=== PATIENT | female | born 1940 | race Caucasian/White ===

== ENCOUNTER → 2017-04-11 | Outpatient (CLI) | payer MEDICARE, OTHER ==
--- NOTE | 2017-04-11 10:05 | MR ---
EXAMINATION TYPE: MR shoulder RT wo con DATE OF EXAM: 04/11/2017 COMPARISON: NONE HISTORY: Right shoulder pain TECHNIQUE: Multiplanar, multisequence imaging of the right shoulder is performed without contrast. FINDINGS: Rotator Cuff: There is a partial through thickness tear involving the distal margin and insertion of the supraspinatus tendon measuring approximately 0.7 x 1.3 cm Infraspinatus tendon appears intact. There does appear to be intrasubstance signal suggestive of part ial tear measuring approximately 0.8 cm. No retraction. There is irregularity and increased signal at the insertion of the subscapularis tendon compatible te ndinosis and partial intrasubstance tear. Acromioclavicular Joint: Hypertrophic change and narrowing of the AC joint noted. This does appear to result in mass effect and impingement supraspinatus muscle and tendon. Glenohumeral Joint: Joint spaces preserved. Inferior glenohumeral ligament intact. Labrum: The labrum appears grossly intact given limitation of non-arthrogram study. Biceps Tendon: The long head of biceps is in normal location within bicipital groove. There is a smal l amount of fluid surrounding the biceps tendon. Bone marrow signal: No focal abnormal marrow signal is appreciated. IMPRESSION: 1. Partial through thickness tear involving the anterior fibers distal margin and insertion insertion of the supraspinatus tendon measuring 0.7 x 1.3 cm. No retraction. 2. Diffuse increased signal and tendinopathy distal margin insertion infraspinatus tendon with partia l tear but no retraction. 3. Tendinopathy partial intrasubstance tear insertion subscapularis tendon. 4. Impingement secondary to hypertrophic change of the AC joint. 5. Mild bicipital tendinosis.
== END | disposition home or self-care (01) ==
LOC: RADMRIMAIN 08:37
PROVIDERS: ATTEND Family Medicine
DX: M75.112 Incomplete rotator cuff tear or rupture of left shoulder, not specified as traumatic (principal); M25.811 Other specified joint disorders, right shoulder; M75.81 Other shoulder lesions, right shoulder; J44.9 Chronic obstructive pulmonary disease, unspecified

== ENCOUNTER → 2017-04-11 | Outpatient (CLI) | payer MEDICARE, OTHER ==
[2017-04-11 10:55] LABS: ALT 43 U/L (9-52); AST 44 U/L (14-36); Alkaline Phosphatase 134 U/L (38-126); Anion Gap 9 mmol/L; Blood Urea Nitrogen 10 mg/dL (7-17); Calcium 9.5 mg/dL (8.4-10.2); Carbon Dioxide 28 mmol/L (22-30); Chloride 99 mmol/L (98-107); Cholesterol 177 mg/dL (<200); Glucose 112 mg/dL (74-99); HDL Cholesterol 94 mg/dL (40-60); Non-African American GFR(MDRD) >60 (>60 ml/min/1.73 sqM); Potassium 4.3 mmol/L (3.5-5.1); Sodium 136 mmol/L (137-145); Total Bilirubin 0.3 mg/dL (0.2-1.3); Total Protein 6.9 g/dL (6.3-8.2)
== END | disposition home or self-care (01) ==
LOC: LABWHC1 09:54
PROVIDERS: ATTEND Internal Medicine Interventional Cardiology
DX: E78.2 Mixed hyperlipidemia (principal)
CPT/HCPCS: 36415; 80053; 80061

== ENCOUNTER 2017-11-18 13:43 | Inpatient (IN) | payer MEDICARE, OTHER ==
[2017-11-18] MEDS ORDERED: ALBUTEROL NEBULIZED 7.5 MG, IPRATROPIUM NEBULIZED 0.5 MG, SODIUM CHLORIDE 0.9% NEBULIZ ... INHALATION ONE ×3 (13:49)
--- NOTE | 2017-11-18 13:51 | ED ---
General Adult HPI - General Stated complaint: SOB Time Seen by Provider: 11/18/17 13:43 - History of Present Illness Initial comments: This is a 77-year-old female presents emergency room with a past medical history significant for COPD. Patient was recently admitted to [facility] for COPD and released. Patient comes back a few days later with worsening shortness of breath. Because he has to wanted to admit her but they did not have a weapons system instrument mechanic and the ER physician thought she was in need of a weapons system instrument mechanic care and her weapons system instrument mechanic comes this hospital. Patient continues to wheeze according to EMS. Patient states she's feeling better now but she continues to be short of breath more than her baseline. Patient denies any chest pain. Patient denies any recent fever chills or cough. Patient denies headache patient denies numbness weakness. Patient denies syncope or any near syncope. Patient denies any abdominal pain patient denies nausea vomiting diarrhea. Patient states the breathing treatment she did receive a [facility] did in fact help her. - Related Data Home Medications Medication Instructions Recorded Confirmed Budesonide-Formot 160-4.5 Mcg 2 puff INHALATION RT-BID 09/24/16 11/06/16 [Symbicort 160-4.5 Mcg Inhaler] Citalopram Hydrobromide [CeleXA] 20 mg PO DAILY 09/24/16 11/06/16 Gabapentin [Neurontin] 100 mg PO TID 09/24/16 11/06/16 Losartan/Hydrochlorothiazide 1 tab PO DAILY 09/24/16 11/06/16 [Hyzaar 100-25 Tablet] Omeprazole 20 mg PO DAILY 09/24/16 11/06/16 Albuterol Sulfate [Proair Hfa] 1 - 2 puff INHALATION RT-TID PRN 11/06/16 Ondansetron [Zofran] 4 mg PO Q12HR PRN 11/06/16 11/06/16 Previous Rx's Medication Instructions Recorded Atorvastatin [Lipitor] 80 mg PO HS #30 tab 09/29/16 Clopidogrel [Plavix] 75 mg PO DAILY tab 09/29/16 Primidone [Mysoline] 50 mg PO TID #90 tab 09/29/16 Loperamide [Imodium] 2 mg PO TID #90 capsule 11/10/16 Cholestyramine (with Sugar) 4 gm PO BID #60 packet 11/13/16 [Questran Packet] Loperamide [Imodium] 2 mg PO TID #30 cap 11/13/16 Metoprolol Tartrate [Lopressor] 25 mg PO BID #60 tab 11/13/16 Allergies Allergy/AdvReac Type Severity Reaction Status Date / Time aspirin AdvReac Abdominal Verified 11/06/16 08:34 Pain codeine AdvReac Nausea & Verified 11/06/16 08:34 Vomiting Review of Systems ROS Statement: Those systems with pertinent positive or pertinent negative responses have been documented in the HPI. ROS Other: All systems not noted in ROS Statement are negative. Past Medical History Past Medical History: COPD, CVA/TIA, Dementia, Fibromyalgia, Hyperlipidemia, Hypertension, Rheumatoid Arthritis ([place]) Additional Past Medical History / Comment(s): chronic back pain History of Any Multi-Drug Resistant Organisms: None Reported Past Surgical History: Appendectomy, Bowel Resection, Cholecystectomy, Hysterectomy Past Psychological History: No Psychological Hx Reported Smoking Status: Never smoker Past Alcohol Use History: None Reported Past Drug Use History: None Reported - Past Family History Mother Family Medical History: CVA/TIA, Myocardial Infarction ([place]) Father Family Medical History: Cancer General Exam - General Exam Comments Initial Comments: GENERAL: Patient is well-developed and well-nourished. Patient is nontoxic and well- hydrated and is in mild distress. ENT: Neck is soft and supple. No significant lymphadenopathy is noted. Oropharynx is clear. Moist mucous membranes. Neck has full range of motion without eliciting any pain. EYES: The sclera were anicteric and conjunctiva were pink and moist. Extraocular movements were intact and pupils were equal round and reactive to light. Eyelids were unremarkable. PULMONARY: Patient is wheezing diffusely CARDIOVASCULAR: There is a regular rate and rhythm without any murmurs gallops or rubs. ABDOMEN: Soft and nontender with normal bowel sounds. No palpable organomegaly was noted. There is no palpable pulsatile mass. SKIN: Skin is clear with no lesions or rashes and otherwise unremarkable. NEUROLOGIC: Patient is alert and oriented x3. Cranial nerves II through XII are grossly intact. Motor and sensory are also intact. Normal speech, volume and content. Symmetrical smile. MUSCULOSKELETAL: Normal extremities with adequate strength and full range of motion. No lower extremity swelling or edema. No calf tenderness. LYMPHATICS: No significant lymphadenopathy is noted PSYCHIATRIC: Normal psychiatric evaluation. Medical Decision Making - Medical Decision Making EKG shows sinus rhythm with occasional PVC at 97 bpm TN interval is 128 QRS 72 QT interval 374 QTC is 474. Patient's EKG shows no ST segment elevation or depression or T wave abnormalities are noted. Patient chest x-ray was put on or radiology system. And reviewed. I spoke with Dr. Blanc admitted the patient I consult the ulnar nares and wrote admitting orders. Disposition Clinical Impression: COPD exacerbation Disposition: ADMITTED IP TO THIS HOSP Referrals: Nacho Bermudez MD [Primary Care Provider] - 1-2 days Time of Disposition: 13:56
[2017-11-18] MEDS ORDERED: IPRATROPIUM-ALBUTEROL 3 ML NEB INHALATION PRN (13:56)
[2017-11-18 15:09] VITALS: BMI 23.0
[2017-11-18] MEDS ORDERED: DIPHENOX-ATROP 2.5-0.025 MG 1 EACH TAB PO PRN (16:18)
[2017-11-18 17:08] LABS: Glucose,Whole Blood 211 mg/dL (75-99)
[2017-11-18] MEDS: INSULIN ASPART 100 UNIT/ML 1 ML 10 ML VIAL SQ SCH ×2 (17:40→22:00)
[2017-11-18] MEDS: methylPREDNISolone SOD SUCCI 125 MG/2 ML VIAL IV SCH ×2 (17:41→23:38)
[2017-11-18] MEDS: GABAPENTIN 100 MG CAP PO SCH ×2 (17:41→22:03)
[2017-11-18] MEDS: CLOPIDOGREL 75 MG TAB PO SCH (17:41)
[2017-11-18] MEDS: CITALOPRAM HYDROBROMIDE 20 MG TAB PO SCH (17:41)
[2017-11-18] MEDS: PRIMIDONE 50 MG TAB PO SCH ×2 (17:41→22:03)
[2017-11-18] MEDS: METOPROLOL SUCCINATE (ER) 25 MG TAB.ER.24H PO SCH (17:42)
[2017-11-18] MEDS: SYMBICORT 160-4.5 MCG INHALER INHALATION SCH (18:48)
[2017-11-18 19:57] LABS: Glucose,Whole Blood 169 mg/dL (75-99)
[2017-11-18] MEDS: ATORVASTATIN 80 MG TAB PO SCH (21:59)
[2017-11-18] MEDS: IPRATROPIUM-ALBUTEROL 3 ML NEB INHALATION SCH ×2 (23:32→23:35)
[2017-11-18] MEDS: BUDESONIDE 1 MG/2 ML NEBU INHALATION SCH (23:32)
--- NOTE | 2017-11-19 04:07 | HP ---
HISTORY AND PHYSICAL DATE OF ADMISSION: November 18, 2017. DATE OF SERVICE: November 18, 2017 PRESENTING COMPLAINT: Short of breath, wheezing and cough. HISTORY OF PRESENTING COMPLAINT: Pleasant 77-year-old patient was here with her . Chronic stable medical conditions include Alzheimer's dementia, hyperlipidemia, hypertension, osteoarthritis, depression, GERD, urinary stress incontinence. The patient presented to [facility] and was there overnight for COPD exacerbation, given breathing treatments and was sent home. The patient progressed to get more and more wheezing, audible cough, bringing up a little sputum. No fever, chills, decreased tired and run down. Quite a bit of coughing and patient was brought in here. The patient's by the bedside. REVIEW OF SYSTEMS: CONSTITUTIONAL: Tired. HEENT none. RESPIRATORY as above. CARDIOVASCULAR none. GASTROINTESTINAL none. GENITOURINARY incontinence. DERMATOLOGICAL none. HEMATOLOGIC none. LYMPHATICS none. PSYCHIATRY: Anxious. NEUROLOGICAL: None. MUSCULOSKELETAL: Pain in different joints. PAST MEDICAL HISTORY: COPD, dementia, hypertension, hyperlipidemia, osteoarthritis, depression, rheumatoid arthritis, restless legs syndrome. GERD, urinary incontinence, stroke, generalized myoclonic jerks. HOME MEDICATIONS: 1. Requip 0.5 mg q.h.s. 2. Prednisone 40 mg a day. 3. Mysoline 50 mg t.i.d. 4. Zofran 4 mg q.8h p.r.n. 5. Omeprazole 40 mg a day. 6. Toprol-XL 25 mg a day. 7. Magnesium oxide 800 mg q.h.s. p.r.n. 8. Cozaar 25 mg a day. 9. Levaquin 500 mg a day. 10.Neurontin 100 mg p.o. t.i.d. 11.Lomotil 1 tablet p.o. q.12 p.r.n. 12.Cymbalta 30 mg p.o. daily. 13.Plavix 75 mg p.o. daily. 14.Celexa 20 mg p.o. daily. 15.Symbicort 160/4.5, 2 puffs b.i.d. 16.Lipitor 80 mg q.h.s. 17.ProAir HFA 2 puffs q.4 p.r.n. 18.Ventolin 2.5 q.4h p.r.n. ALLERGIES: TO ASPIRIN AND CODEINE. PHYSICAL EXAMINATION: VITAL SIGNS: Temperature 98.7, pulse 96, respiratory 22, blood pressure 193/84, pulse ox 100% on room air, repeat blood pressure 124/65. GENERAL APPEARANCE: Average build, sitting up, short of breath. EYES: Pupils equal. Conjunctivae normal. HEENT: External appearance of nose and ears normal. Oral cavity, pharynx irritated. NECK: JVD not raised. Mass not palpable. RESPIRATORY: Effort increased. LUNGS: Diminished breath sounds. Expiratory wheezing, audible also. CARDIOVASCULAR: 1st and 2nd sounds normal. No edema. ABDOMEN: Soft, nontender. Liver and spleen not palpable. LYMPHATICS: No lymph nodes palpable in the neck and axilla. PSYCHIATRY: Alert and oriented x3. Mood and affect anxious-appearing. NEUROLOGICAL: Pupils equal. Cranial nerves grossly intact. Power and sensation grossly intact. MUSCULOSKELETAL: Evidence of osteoarthritis. PAST SURGICAL HISTORY: Appendectomy, bowel resection, cholecystectomy, hysterectomy. SOCIAL HISTORY: The patient smoked a pack a day for 50 years, now discontinued. Alcohol socially. . FAMILY HISTORY: Reviewed, noncontributory to presentation. ASSESSMENT: 1. Acute severe chronic obstructive pulmonary disease exacerbation, having failed outpatient treatment in an ex-smoker. 2. 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 3. 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 4. Hyperlipidemia. 5. Essential hypertension. 6. Primary osteoarthritis. 7. Depression not otherwise specified. 8. Gastroesophageal reflux disease. 9. Chronic urinary stress incontinence. 10.Possibly acute tracheobronchitis. PLAN: Patient is started on nebulized bronchodilators, inhaled steroids. We will also humidify the oxygen. The patient told to avoid cold liquids as this is giving laryngospasms. Home medications are resumed. Care was discussed with the at bedside. Pulmonary consultation was done. Copy to Dr. Bermudez. MMODL / IJN: [id number] /
[2017-11-19] MEDS: methylPREDNISolone SOD SUCCI 125 MG/2 ML VIAL IV SCH ×4 (05:42→23:40)
[2017-11-19] MEDS: IPRATROPIUM-ALBUTEROL 3 ML NEB INHALATION SCH ×5 (05:46→20:07)
[2017-11-19 07:05] LABS: Glucose,Whole Blood 129 mg/dL (75-99)
[2017-11-19] MEDS: SYMBICORT 160-4.5 MCG INHALER INHALATION SCH (07:08)
[2017-11-19] MEDS: BUDESONIDE 1 MG/2 ML NEBU INHALATION SCH ×2 (07:16→20:07)
[2017-11-19] MEDS: INSULIN ASPART 100 UNIT/ML 1 ML 10 ML VIAL SQ SCH ×4 (07:51→21:36)
[2017-11-19] MEDS: LOSARTAN 25 MG TAB PO SCH (07:59)
[2017-11-19] MEDS: GABAPENTIN 100 MG CAP PO SCH ×3 (07:59→21:36)
[2017-11-19] MEDS: ENOXAPARIN 40 MG/0.4 ML SYRINGE SQ SCH (07:59)
[2017-11-19] MEDS: PRIMIDONE 50 MG TAB PO SCH ×3 (07:59→21:36)
[2017-11-19 11:14] LABS: Glucose,Whole Blood 124 mg/dL (75-99)
--- NOTE | 2017-11-19 12:12 | P.CNPUL ---
History of Present Illness Consult date: 11/19/17 Reason for consult: dyspnea, cough, COPD, hypoxemia Chief complaint: Shortness of breath History of present illness: Pulmonary consult dated 11/19/2017 77-year-old female with a history of COPD. She actually sees my partner Dr. Mello in the office. She states for last 3 or 4 days, she's had progressive and increasing shortness of breath. In addition, she's got cough. Not producing much or any phlegm. Lots of wheezing and tightness in her chest. She states her chest hurts when she coughs. No fever or chills. No chest pain or chest discomfort. No nausea vomiting or diarrhea. She apparently was transferred down from [facility] for her COPD exacerbation. She tells me that she takes a nebulizer machine 3-4 times a day and Symbicort for her COPD. In addition to COPD, she has a history of hypertension, CVA, dementia, fibromyalgia, hyperlipidemia, and rheumatoid arthritis. Surgical history includes among other things appendectomy bowel resection cholecystectomy hysterectomy. She did used to smoke cigarettes but she does not smoke currently. She feels about 40-50% better today than she did yesterday. Review of Systems Beta point review of system is positive for shortness of breath chest tightness wheezing cough chest congestion and minimal phlegm production. Past Medical History Past Medical History: COPD, CVA/TIA, Dementia, Fibromyalgia, Hyperlipidemia, Hypertension, Myocardial Infarction ([place]), Rheumatoid Arthritis ([place]) Additional Past Medical History / Comment(s): CVA 2017, chronic back pain Last Myocardial Infarction Date:: 2015 History of Any Multi-Drug Resistant Organisms: None Reported Past Surgical History: Appendectomy, Bowel Resection, Cholecystectomy, Hysterectomy Past Psychological History: No Psychological Hx Reported Smoking Status: Former smoker Past Alcohol Use History: None Reported Past Drug Use History: None Reported - Past Family History Mother Family Medical History: CVA/TIA, Myocardial Infarction ([place]) Father Family Medical History: Cancer Medications and Allergies Home Medications Medication Instructions Recorded Confirmed Type Budesonide-Formot 160-4.5 Mcg 2 puff INHALATION RT-BID 09/24/16 11/18/17 History [Symbicort 160-4.5 Mcg Inhaler] Citalopram Hydrobromide [CeleXA] 20 mg PO DAILY 09/24/16 11/18/17 History Gabapentin [Neurontin] 100 mg PO TID 09/24/16 11/18/17 History Atorvastatin [Lipitor] 80 mg PO HS #30 tab 09/29/16 11/18/17 Rx Clopidogrel [Plavix] 75 mg PO DAILY tab 09/29/16 11/18/17 Rx Primidone [Mysoline] 50 mg PO TID #90 tab 09/29/16 11/18/17 Rx Albuterol Sulfate [Proair Hfa] 2 puff INHALATION RT-Q4H PRN 11/06/16 11/18/17 History Ondansetron [Zofran] 4 mg PO Q8H PRN 11/06/16 11/18/17 History Albuterol Nebulized [Ventolin 2.5 mg INHALATION RT-Q4H PRN 11/18/17 11/18/17 History Nebulized] DULoxetine HCL [Cymbalta] 30 mg PO DAILY 11/18/17 11/18/17 History Diphenoxylate HCl/Atropine 1 tab PO Q12H PRN 11/18/17 11/18/17 History [Lomotil 2.5-0.025 mg Tablet] Levofloxacin [Levaquin] 500 mg PO DAILY 11/18/17 11/18/17 History Losartan [Cozaar] 25 mg PO DAILY 11/18/17 11/18/17 History Magnesium Oxide 800 mg PO HS PRN 11/18/17 11/18/17 History Metoprolol Succinate [Toprol XL] 25 mg PO DAILY 11/18/17 11/18/17 History Omeprazole 40 mg PO DAILY 11/18/17 11/18/17 History predniSONE 40 mg PO DAILY 11/18/17 11/18/17 History rOPINIRole HCL [Requip] 0.5 mg PO HS 11/18/17 11/18/17 History Allergies Allergy/AdvReac Type Severity Reaction Status Date / Time aspirin AdvReac Abdominal Verified 11/18/17 13:59 Pain codeine AdvReac Nausea & Verified 11/18/17 13:59 Vomiting Physical Exam Osteopathic Statement: *. No significant issues noted on an osteopathic structural exam other than those noted in the History and Physical/Consult. Vitals: Vital Signs Temp Pulse Pulse Resp BP BP Pulse Ox 11/19/17 11:17 88 07/08/18 11:08 88 11/19/17 08:00 83 18 11/19/17 07:22 88 11/19/17 07:10 84 97 11/19/17 05:24 98.0 F 83 18 140/82 97 11/18/17 23:45 88 11/18/17 23:36 88 11/18/17 20:49 98.0 F 90 20 117/73 97 11/18/17 19:03 108 H 11/18/17 18:51 100 11/18/17 15:00 97.7 F 104 H 20 132/65 97 11/18/17 14:55 97 11/18/17 14:42 96 11/18/17 14:26 103 H 11/18/17 14:25 93 22 124/65 98 11/18/17 13:58 94 11/18/17 13:54 98.7 F 96 22 193/84 100 Intake and Output 11/18/17 11/19/17 11/19/17 22:59 06:59 14:59 Other: Voiding Method Bedside Commode Toilet # Voids 1 1 Weight 57.153 kg No acute distress, oriented 3. Nasal O2 in place. HEENT examination is grossly unremarkable. Mucous membranes are moist. No oral lesions. Neck supple. Full range of motion. No adenopathy thyromegaly or neck vein distention. Cardiovascular examination reveals regular rhythm rate. S1-S2 normal. No S3 or S4. No discernible murmur noted. Lungs reveal coarse bilateral expiratory rhonchi and wheezes. There is prolongation on forced maneuver. She wheezes and coughs on forced maneuver. No crackles. Abdomen soft bowel sounds are heard. No masses or tenderness. Extremities are intact. No cyanosis clubbing or edema. Skin has multiple areas of ecchymoses and bruising. Neurologic examination is brief but nonfocal. Results - Laboratory Findings Abnormal lab findings: Abnormal Labs 11/18/17 11/18/17 11/19/17 17:07 19:53 07:01 POC Glucose (mg/dL) 211 H 169 H 129 H 11/19/17 11:09 POC Glucose (mg/dL) 124 H Assessment and Plan Assessment: Assessment COPD exacerbation History of CVA/TIA History of dementia Fibromyalgia History of hyperlipidemia History of hypertension History of rheumatoid arthritis Plan: Plan dated 11/19/2017 The patient's medications labs and x-rays are all reviewed. I'll order an x- ray as I cannot find the x-ray that was apparently sent down from [place]. We' ll make sure the patient's on appropriate medications including bronchodilators and systemic corticosteroids, etc. Additional recommendations and suggestions are forthcoming. Prognosis is guarded. The patient will see her usual vat tender tomorrow, Dr. Mello. Additional recommendations and suggestions are forthcoming. Time with Patient: Greater than 30
[2017-11-19] MEDS: DULoxetine HCL 30 MG CAPSULE.DR PO SCH (12:53)
[2017-11-19] MEDS: CLOPIDOGREL 75 MG TAB PO SCH (12:53)
--- NOTE | 2017-11-19 15:04 | XR ---
EXAMINATION TYPE: XR chest 2V DATE OF EXAM: 11/19/2017 COMPARISON: 09/28/2016 HISTORY: 77 year-old female shortness of breath TECHNIQUE: Frontal and lateral views FINDINGS: The heart is normal size. Atherosclerotic arch calcifications within the aortic arch. Mild diffuse in terstitial prominence and mild hyperinflation which may related to depth of inspiration. No consolida tion or pleural effusion. IMPRESSION: Chronic changes without acute cardiopulmonary process.
[2017-11-19 17:09] LABS: Glucose,Whole Blood 129 mg/dL (75-99)
[2017-11-19] MEDS: METOPROLOL SUCCINATE (ER) 25 MG TAB.ER.24H PO SCH (17:50)
[2017-11-19] MEDS: CITALOPRAM HYDROBROMIDE 20 MG TAB PO SCH (17:50)
--- NOTE | 2017-11-19 19:56 | PN ---
PROGRESS NOTE DATE OF SERVICE: November 19, 2017. PRESENTING COMPLAINT: Tired. INTERVAL HISTORY: This patient with severe COPD exacerbation. Wheezing is better. Short of breath, better. Did tolerate some diet, sitting up on bed. Cough is present. Not bringing up much. REVIEW OF SYSTEMS: Done for constitutional, cardiovascular, GI, pulmonary; relevant findings above. CURRENT MEDICATIONS: Reviewed that include DuoNeb, IV Solu-Medrol, inhaled steroids. REVIEW OF SYMPTOMS: Review of systems done for constitutional, cardiovascular, GI, pulmonary and relevant findings as above. MEDICATIONS: Current medications reviewed. EXAMINATION: VITAL SIGNS: Temperature 98.2, pulse 91 respiratory 20, blood pressure 127/72, pulse ox 96% on 2 L. GENERAL APPEARANCE: Sitting up, looking a bit better. EYES: Pupils are equal. Conjunctivae normal. HEENT: External appearance of nose and ears normal. Oral cavity normal. NECK: JVD not raised. Mass not palpable. RESPIRATORY: Effort increased. LUNGS: Diminished breath sounds. Prolonged expiration. Less wheezing. Some improved air entry. CARDIOVASCULAR: 1st and 2nd sounds normal. No edema. ABDOMEN: Soft, nontender. Liver and spleen not palpable. PSYCHIATRY: Alert and oriented x3. Mood and affect less anxious-appearing. INVESTIGATIONS: Accu-Cheks are noted. Chest x-ray reviewed shows severe hyperinflation, maybe mild fleeting infiltrates. ASSESSMENT: 1. Acute severe chronic obstructive pulmonary disease exacerbation, having failed outpatient treatment in an ex-smoker from acute tracheobronchitis, clinically responding. 2. 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 3. 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 4. Hyperlipidemia. 5. Essential hypertension. 6. Primary osteoarthritis. 7. Depression not otherwise specified. 8. Gastroesophageal reflux disease. 9. Chronic urinary stress incontinence. PLAN: Continue current medication and treatment plan. The patient is clinically responding. Care was discussed with the at the bedside. Repeat labs in the morning. MMODL / IJN: [id number] /
[2017-11-19] MEDS: FORMOTEROL FUMARATE 20 MCG/2 ML NEBU INHALATION SCH (20:07)
[2017-11-19 20:16] LABS: Glucose,Whole Blood 170 mg/dL (75-99)
[2017-11-19] MEDS: ATORVASTATIN 80 MG TAB PO SCH (21:36)
[2017-11-20] MEDS: IPRATROPIUM-ALBUTEROL 3 ML NEB INHALATION SCH ×6 (00:47→19:28)
[2017-11-20] MEDS: methylPREDNISolone SOD SUCCI 125 MG/2 ML VIAL IV SCH ×3 (05:17→17:31)
[2017-11-20 07:00] LABS: Glucose,Whole Blood 132 mg/dL (75-99)
[2017-11-20] MEDS: INSULIN ASPART 100 UNIT/ML 1 ML 10 ML VIAL SQ SCH ×4 (07:19→20:42)
[2017-11-20] MEDS: ENOXAPARIN 40 MG/0.4 ML SYRINGE SQ SCH (07:21)
[2017-11-20] MEDS: PRIMIDONE 50 MG TAB PO SCH ×3 (07:22→20:53)
[2017-11-20] MEDS: LOSARTAN 25 MG TAB PO SCH (07:22)
[2017-11-20] MEDS: GABAPENTIN 100 MG CAP PO SCH ×3 (07:22→20:53)
[2017-11-20] MEDS: FORMOTEROL FUMARATE 20 MCG/2 ML NEBU INHALATION SCH ×2 (08:04→19:41)
[2017-11-20] MEDS: BUDESONIDE 1 MG/2 ML NEBU INHALATION SCH ×2 (08:04→19:27)
[2017-11-20 08:24] LABS: Basophils % (A) 0 %; Eosinophils % (A) 0 %; HCT 39.2 % (34.0-46.0); HGB 12.6 gm/dL (11.4-16.0); Lymphocytes % (A) 9 %; MCHC 32.2 g/dL (31.0-37.0); MCV 96.2 fL (80.0-100.0); Mean Platelet Volume 6.5; Monocytes # (A) 0.7 k/uL (0-1.0); Monocytes % (A) 6 %; Neutrophils # (A) 9.4 k/uL (1.3-7.7); Neutrophils % (A) 84 %; Platelet Count 412 k/uL (150-450); RBC 4.07 m/uL (3.80-5.40); RDW 13.4 % (11.5-15.5); WBC 11.2 k/uL (3.8-10.6)
[2017-11-20 08:31] LABS: Anion Gap 14 mmol/L; Blood Urea Nitrogen 20 mg/dL (7-17); Calcium 9.4 mg/dL (8.4-10.2); Carbon Dioxide 25 mmol/L (22-30); Chloride 96 mmol/L (98-107); Glucose 118 mg/dL (74-99); Potassium 5.1 mmol/L (3.5-5.1); Sodium 135 mmol/L (137-145)
[2017-11-20] MEDS: CLOPIDOGREL 75 MG TAB PO SCH (11:38)
[2017-11-20] MEDS: DULoxetine HCL 30 MG CAPSULE.DR PO SCH (11:39)
[2017-11-20 11:42] LABS: Glucose,Whole Blood 116 mg/dL (75-99)
--- NOTE | 2017-11-20 15:03 | P.PN ---
Subjective Progress Note Date: 11/20/17 Principal diagnosis: acute exacerbation of chronic obstructive pulmonary disease Pulmonary consult dated 11/19/2017 77-year-old female with a history of COPD. She actually sees my partner Dr. Mello in the office. She states for last 3 or 4 days, she's had progressive and increasing shortness of breath. In addition, she's got cough. Not producing much or any phlegm. Lots of wheezing and tightness in her chest. She states her chest hurts when she coughs. No fever or chills. No chest pain or chest discomfort. No nausea vomiting or diarrhea. She apparently was transferred down from [facility] for her COPD exacerbation. She tells me that she takes a nebulizer machine 3-4 times a day and Symbicort for her COPD. In addition to COPD, she has a history of hypertension, CVA, dementia, fibromyalgia, hyperlipidemia, and rheumatoid arthritis. Surgical history includes among other things appendectomy bowel resection cholecystectomy hysterectomy. She did used to smoke cigarettes but she does not smoke currently. She feels about 40-50% better today than she did yesterday. on 11/20/2017 patient seen again in follow-up on medical surgical floor. she is improving, less bronchospastic, still has exertional shortness of breath. vital signs are stable, she is on 2 L per nasal cannula with O2 sat at 94%, no fever no chills,today's labs were noted, WBCs 11.2, hemoglobin is 12.6, sodium is 135 , chloride is 96, B1 is 20, creatinine 0.74.history chest x-ray has been reviewed by Dr. Mello, showed mild diffuse interstitial prominence and mild hyperinflation, no consolidation or pleural effusions, no acute cardiopulmonary process.patient is being treated with IV steroids, Perforomist, Pulmicort, DuoNeb. We'll continue with current plan of treatment. patient's FEV1 is in order of 48%, measured in 2016, and this is consistent with moderately severe COPD, Gold stage III. Objective - Vital Signs Vital signs: Vital Signs Temp 97.3 F L 11/20/17 07:00 Pulse 82 11/20/17 13:34 Resp 16 11/20/17 07:00 BP 161/71 11/20/17 07:00 Pulse Ox 94 L 11/20/17 08:04 Intake & Output 11/19/17 11/20/17 11/20/17 18:59 06:59 18:59 Intake Total 680 610 Balance 680 610 Weight 57.153 kg 57.153 kg Intake: Oral 680 610 Other: Voiding Method Toilet Toilet Toilet # Voids 2 1 2 - Exam No acute distress, oriented 3. Nasal O2 in place. HEENT examination is grossly unremarkable. Mucous membranes are moist. No oral lesions. Neck supple. Full range of motion. No adenopathy thyromegaly or neck vein distention. Cardiovascular examination reveals regular rhythm rate. S1-S2 normal. No S3 or S4. No discernible murmur noted. Lungs reveal coarse bilateral expiratory rhonchi and wheezes. There is prolongation on forced maneuver. She wheezes and coughs on forced maneuver. No crackles. Abdomen soft bowel sounds are heard. No masses or tenderness. Extremities are intact. No cyanosis clubbing or edema. Skin has multiple areas of ecchymoses and bruising. Neurologic examination is brief but nonfocal. - Labs CBC & Chem 7: 11/20/17 07:27 11/20/17 07:27 Labs: Abnormal Lab Results - Last 24 Hours (Table) 11/19/17 11/19/17 11/20/17 Range/Units 17:07 20:15 06:59 WBC (3.8-10.6) k/uL Neutrophils # (1.3-7.7) k/uL Sodium (137-145) mmol/L Chloride (98-107) mmol/L BUN (7-17) mg/dL Glucose (74-99) mg/dL POC Glucose (mg/dL) 129 H 170 H 132 H (75-99) mg/dL 11/20/17 11/20/17 11/20/17 Range/Units 07:27 07:27 11:41 WBC 11.2 H (3.8-10.6) k/uL Neutrophils # 9.4 H (1.3-7.7) k/uL Sodium 135 L (137-145) mmol/L Chloride 96 L (98-107) mmol/L BUN 20 H (7-17) mg/dL Glucose 118 H (74-99) mg/dL POC Glucose (mg/dL) 116 H (75-99) mg/dL Assessment and Plan Plan: Assessment: COPD exacerbation Moderately severe COPD, GOLD stage III, with a baseline FEV1 of 48% of predicted History of CVA/TIA History of dementia Fibromyalgia History of hyperlipidemia History of hypertension History of rheumatoid arthritis Plan: Will obtain CT chest completed at [facility].Yesterday's chest x- ray did not show any evidence of acute pulmonary process, signs remain stable, continue with IV steroids, nebulized bronchodilators, Pulmicort and Perforomist. we will add oral Zithromax 500 mg daily. Continue to follow. I performed a history & physical examination of the patient and discussed their management with my nurse practitioner, Sonia Rocha. I reviewed the nurse practitioner's note and agree with the documented findings and plan of care. Lung sounds are positive for diffuse wheezes and scattered rhonchi. The findings and the impression was discussed with the patient. I attest to the documentation by the nurse practitioner. Time with Patient: Less than 30
[2017-11-20] MEDS: AZITHROMYCIN 500 MG TAB PO SCH (16:39)
[2017-11-20 17:06] LABS: Glucose,Whole Blood 155 mg/dL (75-99)
[2017-11-20] MEDS: CITALOPRAM HYDROBROMIDE 20 MG TAB PO SCH (17:33)
[2017-11-20] MEDS: METOPROLOL SUCCINATE (ER) 25 MG TAB.ER.24H PO SCH (18:04)
[2017-11-20 18:57] LABS: Hemoglobin A1C 5.2 % (4.0-6.0)
[2017-11-20 20:32] LABS: Glucose,Whole Blood 128 mg/dL (75-99)
[2017-11-20] MEDS: ATORVASTATIN 80 MG TAB PO SCH (20:41)
--- NOTE | 2017-11-20 21:36 | PN ---
PROGRESS NOTE DATE OF SERVICE: 11/20/2017. PRESENTING COMPLAINT: Short of breath. INTERVAL HISTORY: The patient was admitted with severe COPD exacerbation. Breathing is better. Wheezing is better. Did tolerate some diet. Wants to go home. at the bedside. Did get up out of bed. REVIEW OF SYSTEMS: Done for constitutional, cardiovascular, GI, pulmonary; relevant findings as above. CURRENT MEDICATIONS: Reviewed, include DuoNeb, IV Solu-Medrol. PHYSICAL EXAMINATION: Temperature 97.9, pulse 88, respiratory rate 18, blood pressure 120/62, pulse ox 98% on room air. GENERAL APPEARANCE: Sitting up, more comfortable. EYES: Pupils are equal. Conjunctivae normal. HEENT: External appearance of nose and ears normal. Oral cavity normal. NECK: JVD not raised. Mass not palpable. Respiratory effort increased. LUNGS: Decreased breath sounds. Prolonged expiration. Improved air entry. CARDIOVASCULAR: 1st and 2nd sounds. No edema. ABDOMEN: Soft, nontender. Liver and spleen not palpable. PSYCHIATRY: Alert and oriented x3. Mood and affect normal. INVESTIGATIONS: White count 10.2, potassium 5.1. ASSESSMENT: 1. Acute severe chronic obstructive pulmonary disease exacerbation. Having failed outpatient treatment. 2. Smoker, acute tracheobronchitis. Continues to improve. 3. 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 4. 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 5. Hyperlipidemia. 6. Essential hypertension. 7. Primary osteoarthritis. 8. Depression, not otherwise specified. 9. Gastroesophageal reflux disease. 10.Chronic urinary stress incontinence. PLAN: Care was discussed with at the bedside. The patient has done very well. We will cut back on steroids. Looking to go home in the next 24 hours. MMODL / IJN: [id number] /
[2017-11-21] MEDS: IPRATROPIUM-ALBUTEROL 3 ML NEB INHALATION SCH ×6 (01:50→19:33)
[2017-11-21 07:20] LABS: Glucose,Whole Blood 85 mg/dL (75-99)
[2017-11-21] MEDS: INSULIN ASPART 100 UNIT/ML 1 ML 10 ML VIAL SQ SCH ×4 (07:39→20:38)
[2017-11-21] MEDS: predniSONE 20 MG TAB PO SCH (07:53)
[2017-11-21] MEDS: LOSARTAN 25 MG TAB PO SCH (07:53)
[2017-11-21] MEDS: PRIMIDONE 50 MG TAB PO SCH ×3 (07:53→20:53)
[2017-11-21] MEDS: GABAPENTIN 100 MG CAP PO SCH ×3 (07:54→20:53)
[2017-11-21] MEDS: ENOXAPARIN 40 MG/0.4 ML SYRINGE SQ SCH (07:54)
[2017-11-21] MEDS: AZITHROMYCIN 500 MG TAB PO SCH (07:54)
[2017-11-21 08:19] LABS: Calcium 9.3 mg/dL (8.4-10.2); Potassium 4.4 mmol/L (3.5-5.1)
[2017-11-21] MEDS: BUDESONIDE 1 MG/2 ML NEBU INHALATION SCH ×2 (08:24→19:33)
[2017-11-21] MEDS: FORMOTEROL FUMARATE 20 MCG/2 ML NEBU INHALATION SCH ×2 (08:24→19:33)
[2017-11-21 11:03] LABS: Glucose,Whole Blood 88 mg/dL (75-99)
[2017-11-21] MEDS: guaiFENesin 600 MG TABLET.ER PO SCH ×2 (13:12→20:38)
[2017-11-21] MEDS: CLOPIDOGREL 75 MG TAB PO SCH (13:12)
[2017-11-21] MEDS: DULoxetine HCL 30 MG CAPSULE.DR PO SCH (13:12)
--- NOTE | 2017-11-21 14:06 | P.PN ---
Subjective Progress Note Date: 11/21/17 Principal diagnosis: acute exacerbation of chronic obstructive pulmonary disease Pulmonary consult dated 11/19/2017 77-year-old female with a history of COPD. She actually sees my partner Dr. Mello in the office. She states for last 3 or 4 days, she's had progressive and increasing shortness of breath. In addition, she's got cough. Not producing much or any phlegm. Lots of wheezing and tightness in her chest. She states her chest hurts when she coughs. No fever or chills. No chest pain or chest discomfort. No nausea vomiting or diarrhea. She apparently was transferred down from [facility] for her COPD exacerbation. She tells me that she takes a nebulizer machine 3-4 times a day and Symbicort for her COPD. In addition to COPD, she has a history of hypertension, CVA, dementia, fibromyalgia, hyperlipidemia, and rheumatoid arthritis. Surgical history includes among other things appendectomy bowel resection cholecystectomy hysterectomy. She did used to smoke cigarettes but she does not smoke currently. She feels about 40-50% better today than she did yesterday. on 11/20/2017 patient seen again in follow-up on medical surgical floor. she is improving, less bronchospastic, still has exertional shortness of breath. vital signs are stable, she is on 2 L per nasal cannula with O2 sat at 94%, no fever no chills,today's labs were noted, WBCs 11.2, hemoglobin is 12.6, sodium is 135 , chloride is 96, B1 is 20, creatinine 0.74.history chest x-ray has been reviewed by Dr. Mello, showed mild diffuse interstitial prominence and mild hyperinflation, no consolidation or pleural effusions, no acute cardiopulmonary process.patient is being treated with IV steroids, Perforomist, Pulmicort, DuoNeb. We'll continue with current plan of treatment. patient's FEV1 is in order of 48%, measured in 2016, and this is consistent with moderately severe COPD, Gold stage III. On 11/21/2017 patient seen again on medical surgical floor. Resting in bed, she states she could not sleep last night related to persistent coughing, and the patient is unable to bring up any phlegm. Denies any chest pain, she is very fatigued, and becomes dyspneic with any exertion. Pulse ox on 2 L per nasal cannula is 95%, patient is afebrile, dynamically stable. CT chest results from June 2017 were obtained from [facility] in at that time showed some ill-defined infiltrates or atelectasis predominantly affecting the upper and middle lobes, questionable viral or mycoplasma infection. Was nonspecific scattered mediastinal lymph nodes largest one in the retro-subcarinal area measuring up to 15 mm. She remains on empiric antibiotics in the form of Zithromax, add Mucinex, and cough syrup, in addition to Pulmicort, Perforomist, DuoNeb nebulized treatments, and steroids. Objective - Vital Signs Vital signs: Vital Signs Temp 97.5 F L 11/21/17 07:02 Pulse 80 11/21/17 11:52 Resp 16 11/21/17 07:02 BP 132/62 11/21/17 07:02 Pulse Ox 95 11/21/17 07:02 Intake & Output 11/20/17 11/21/17 11/21/17 18:59 06:59 18:59 Intake Total 610 240 Balance 610 240 Weight 57.153 kg Intake: Oral 610 240 Other: Voiding Method Toilet Toilet Toilet # Voids 2 1 - Exam No acute distress, oriented 3. Nasal O2 in place. HEENT examination is grossly unremarkable. Mucous membranes are moist. No oral lesions. Neck supple. Full range of motion. No adenopathy thyromegaly or neck vein distention. Cardiovascular examination reveals regular rhythm rate. S1-S2 normal. No S3 or S4. No discernible murmur noted. Lungs reveal coarse bilateral expiratory rhonchi and wheezes. There is prolongation on forced maneuver. She wheezes and coughs on forced maneuver. No crackles. Abdomen soft bowel sounds are heard. No masses or tenderness. Extremities are intact. No cyanosis clubbing or edema. Skin has multiple areas of ecchymoses and bruising. Neurologic examination is brief but nonfocal. - Labs CBC & Chem 7: 11/20/17 07:27 11/21/17 07:42 Labs: Abnormal Lab Results - Last 24 Hours (Table) 11/20/17 11/20/17 11/21/17 Range/Units 17:04 20:29 07:42 Chloride 97 L (98-107) mmol/L BUN 23 H (7-17) mg/dL POC Glucose (mg/dL) 155 H 128 H (75-99) mg/dL Assessment and Plan Plan: Assessment: COPD exacerbation Moderately severe COPD, GOLD stage III, with a baseline FEV1 of 48% of predicted History of CVA/TIA History of dementia Fibromyalgia History of hyperlipidemia History of hypertension History of rheumatoid arthritis Plan: Continue current medical treatment, continue Zithromax, nebulized bronchodilators, and steroids. Will add Mucinex, will add promethazine cough syrup, we will schedule the patient for a bronchoscopy with BAL for tomorrow on 11/22/2017 at 1200. Nothing by mouth after midnight. Was discussed with the patient and her , were in agreement with the plan. I performed a history & physical examination of the patient and discussed their management with my nurse practitioner, Sonia Rocha. I reviewed the nurse practitioner's note and agree with the documented findings and plan of care. Lung sounds are positive for diffuse wheezes and scattered rhonchi. The findings and the impression was discussed with the patient. I attest to the documentation by the nurse practitioner. Time with Patient: Less than 30
[2017-11-21] MEDS ORDERED: FLUCONAZOLE 100 MG TAB PO ONE (14:34)
[2017-11-21 17:06] LABS: Glucose,Whole Blood 127 mg/dL (75-99)
[2017-11-21] MEDS: CITALOPRAM HYDROBROMIDE 20 MG TAB PO SCH (17:46)
[2017-11-21] MEDS: METOPROLOL SUCCINATE (ER) 25 MG TAB.ER.24H PO SCH (17:47)
[2017-11-21 20:09] LABS: Glucose,Whole Blood 140 mg/dL (75-99)
[2017-11-21] MEDS: ATORVASTATIN 80 MG TAB PO SCH (20:38)
[2017-11-21] MEDS: PROMETHAZ-COD 6.25-10 MG/5 ML 5 ML CUP PO PRN (21:08)
--- NOTE | 2017-11-22 01:16 | PN ---
PROGRESS NOTE DATE OF SERVICE: 11/21/2017 PRESENTING COMPLAINT: Tired. INTERVAL HISTORY: Patient with severe COPD exacerbation. Breathing is better than from admission, but patient gets easily short-winded. The patient has a bit of a cough. Dr. Mello will be doing a bronchoscopy tomorrow to see if he can clear any secretions. The patient did tolerate some diet. Family is present at the bedside. REVIEW OF SYSTEMS: Done for constitutional, cardiovascular, GI, pulmonary; relevant findings as above. CURRENT MEDICATIONS: Reviewed that include: 1. DuoNeb. 2. Zithromax. 3. Diflucan. 4. Prednisone. PHYSICAL EXAM: HEENT: The patient has white patches in the pharynx. INVESTIGATIONS: Potassium 4.4, BUN 23, creatinine 0.81. ASSESSMENT: 1. Acute severe chronic obstructive pulmonary disease exacerbation, having failed outpatient treatment with clinical improvement in a smoker. 2. Acute tracheobronchitis. 3. 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 4. Pharyngeal candidiasis. Patient started on Diflucan last night. 5. Mild cognitive impairment from Alzheimer dementia, late onset type. 6. Hyperlipidemia. 7. Essential hypertension. 8. Primary osteoarthritis. 9. Depression, not otherwise specified. 10.Gastroesophageal reflux disease. 11.Chronic urinary stress incontinence. PLAN: Discussed with Dr. Mello today. He is going to be is doing a bronchoscopy tomorrow. Care was discussed the patient. Questions were answered. Follow. MMODL / IJN: [id number] /
[2017-11-22 07:11] LABS: Glucose,Whole Blood 88 mg/dL (75-99)
[2017-11-22] MEDS: IPRATROPIUM-ALBUTEROL 3 ML NEB INHALATION SCH ×4 (07:11→20:06)
[2017-11-22] MEDS: FORMOTEROL FUMARATE 20 MCG/2 ML NEBU INHALATION SCH ×2 (07:11→20:06)
[2017-11-22] MEDS: BUDESONIDE 1 MG/2 ML NEBU INHALATION SCH ×2 (07:11→20:07)
[2017-11-22] MEDS: ENOXAPARIN 40 MG/0.4 ML SYRINGE SQ SCH (07:32)
[2017-11-22] MEDS: INSULIN ASPART 100 UNIT/ML 1 ML 10 ML VIAL SQ SCH ×4 (07:33→20:53)
[2017-11-22 07:57] LABS: Calcium 8.9 mg/dL (8.4-10.2); Potassium 4.4 mmol/L (3.5-5.1)
[2017-11-22 11:50] LABS: Glucose,Whole Blood 88 mg/dL (75-99)
[2017-11-22] MEDS ORDERED: LIDOCAINE 1% INJ 10MG/ML (20 ML MDV) ONE (12:52)
[2017-11-22] MEDS ORDERED: PROPOFOL 10 MG/ML 20 ML VIAL IV ONE (12:52)
[2017-11-22] MEDS ORDERED: LACTATED RINGERS 950 ML IV ONE (12:53)
--- NOTE | 2017-11-22 12:59 | P.PN ---
Subjective Progress Note Date: 11/22/17 On today's evaluation of 11/22/2017, the patient is being admitted to undergo a flexible bronchoscopy, bronchial lavage and a sample was sent for culture suspecting an underlying infection. Note that after some initial recovery the patient continued to have vigorous cough and a congested cough that she was unable to bring up much of sputum. This been going on for quite some time and I think it's worthwhile to undergo a bronchoscopy for therapeutic airway suctioning and St. of establishing microbial diagnoses of there is any ongoing infection. The patient is currently on Zithromax orally 500 mg by mouth daily. The patient is also on Diflucan 100 mg by mouth daily. The patient on a prednisone burst taper. The patient continues to be on DuoNeb nebulized treatments around the clock, Pulmicort Respules and perform it the last 2 minutes twice a day. She is agreeable to the procedure. A timeout was obtained. Consent was obtained. is also aware. She is on Phenergan with codeine to suppress her cough. Objective - Vital Signs Vital signs: Vital Signs Temp 97.8 F 11/22/17 05:42 Pulse 76 11/22/17 11:02 Resp 16 11/22/17 05:42 BP 123/69 11/22/17 05:42 Pulse Ox 96 11/22/17 05:42 Intake & Output 11/21/17 11/22/17 11/22/17 18:59 06:59 18:59 Other: Voiding Method Toilet Toilet Toilet # Voids 2 2 - Exam Gen. appearance she is calm comfortable likely distress Head exam was generally normal. There was no scleral icterus or corneal arcus. Mucous membranes were moist. Neck was supple and without jugular venous distension, thyromegaly, or carotid bruits. Carotids were easily palpable bilaterally. There was no adenopathy. Lungs sounds are diminished bilaterally along with prolongation of expiratory phase of breathing and scattered expiratory wheezes throughout the lung martinez Cardiac exam revealed the PMI to be normally situated and sized. The rhythm was regular and no extrasystoles were noted during several minutes of auscultation. The first and second heart sounds were normal and physiologic splitting of the second heart sound was noted. There were no murmurs, rubs, clicks, or gallops. Abdominal exam revealed normal bowel sounds. The abdomen was soft, non-tender, and without masses, organomegaly, or appreciable enlargement of the abdominal aorta. Examination of the skin revealed no evidence of significant rashes, suspicious appearing nevi or other concerning lesions. Neurologically the patient is awake and alert and there is no focal neurological deficit this point NExamination of the skin revealed no evidence of significant rashes, suspicious appearing nevi or other concerning lesions.in - Labs CBC & Chem 7: 11/20/17 07:27 11/22/17 06:49 Labs: Abnormal Lab Results - Last 24 Hours (Table) 11/21/17 11/21/17 11/22/17 Range/Units 17:03 20:08 06:49 Sodium 136 L (137-145) mmol/L BUN 21 H (7-17) mg/dL POC Glucose (mg/dL) 127 H 140 H (75-99) mg/dL Assessment and Plan Plan: COPD exacerbation, with persistent symptoms of cough and congestion and ongoing symptoms of taken bronchitis. CAT scan of the chest from June 2017 showed no acute abnormalities are than some background COPD. The patient has had some limited success with initial antibiotic and steroid treatment. We'll continue with a bronchoscopy and bronchial lavage today. Moderately severe COPD, GOLD stage III, with a baseline FEV1 of 48% of predicted History of CVA/TIA History of dementia Fibromyalgia History of hyperlipidemia History of hypertension History of rheumatoid arthritis Plan Continue same treatment. Obtain a bronchoscopy and bronchial lavage and therapeutic it was suctioning and the lavage will be sent for microbial analysis and cultures. Continue Phenergan with codeine for cough. May need another 24 hours of inpatient treatment pending further cultures from the bronchioloalveolar lavage. We'll continue to follow.
--- NOTE | 2017-11-22 13:16 | P.PCN ---
Date of Procedure: 11/22/17 Preoperative Diagnosis: Tracheobronchitis, mucous plugging, COPD Postoperative Diagnosis: Tracheobronchitis, mucous plugging, COPD Procedure(s) Performed: Rectal bronchoscopy, therapeutic airway suctioning, bronchioloalveolar lavage Anesthesia: MAC Surgeon: Willie Mello Climate Change Risk Assessor #1: Rebecca Zendejas Estimated Blood Loss (ml): 0 Pathology: other Disposition: floor Description of Procedure: THIS IS A 77-YEAR-OLD FEMALE PATIENT WAS HAVING DIFFICULTIES WITH SHORTNESS OF BREATH COPD EXACERBATION TRACHEAL BRONCHITIS AND MUCUS PLUGGING. FOR THAT REASON, A FLEXIBLE BRONCHOSCOPE WAS PLANNED FOR TODAY. This procedure was done under conscious sedation with an acidic it is being administered by anesthesia the bedside. After achieving adequate sedation, the flexible bronchoscope was advanced into the left nostril and was moved to the posterior oropharynx, pharynx, and then larynx. All of this upper airway structures were within normal limits. Epiglottis was identified and was sharp in the midline. The vallecula, arytenoids, true and false vocal cords were all visualized. All of these upper airway structures were within normal limits. A total of 2 mL of 1% lidocaine was applied to the vocal cords, and following that the flexible bronchoscope was advanced into the upper trachea. Once the bronchoscope was advanced to the trachea, copious amount of rest or secretions that were creamy beige in color was identified occupying the entire trachea, bilateral mainstem bronchi and most significantly in the left lower lobe bronchus. At this point, therapy care was suctioning was done. The secretions were irrigated with normal saline and following that there were suctioned out without any major difficulties. At times, the secretions were very thickened was playing the working chamber of the bronchoscope and manipulation with suctioning and saline irrigation was done and all of the secretions were suctioned out without any major difficulties. Airway inspection was completed. The visualized airways into the trachea, bilateral mainstem bronchi, right upper lobe bronchus right middle lobe bronchus right lower lobe bronchus, left upper and left lower lobe bronchus. There was no endobronchial tumor or lesion identified. 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 There was copious amount of it for secretions retained within the left lower lobe bronchus that was suctioned out without any major difficulties. A quick bronchial lavage of the left lower lobe was also done. The samples were sent for microbial analysis. A letter O bleeding. Bronchoscope was removed. The patient's pulse ox remained above 90% throughout the procedure. The patient will be sent back to her room on the medical floor and further recommendations are to follow based on results of the bronchial lavage. Anticipate improvement in overall respiratory status following this bronchoscopy.
[2017-11-22] MEDS: DULoxetine HCL 30 MG CAPSULE.DR PO SCH (13:51)
[2017-11-22] MEDS: CLOPIDOGREL 75 MG TAB PO SCH (13:51)
[2017-11-22] MEDS: GABAPENTIN 100 MG CAP PO SCH ×3 (13:52→20:54)
[2017-11-22] MEDS: LOSARTAN 25 MG TAB PO SCH (13:52)
[2017-11-22] MEDS: guaiFENesin 600 MG TABLET.ER PO SCH ×2 (13:52→20:53)
[2017-11-22] MEDS: predniSONE 20 MG TAB PO SCH (13:52)
[2017-11-22] MEDS: PRIMIDONE 50 MG TAB PO SCH ×3 (13:52→20:54)
[2017-11-22] MEDS: FLUCONAZOLE 100 MG TAB PO SCH (13:52)
[2017-11-22] MEDS: AZITHROMYCIN 500 MG TAB PO SCH (13:53)
[2017-11-22 16:30] LABS: Appearance,BF Cloudy; Color,BF Colorless; Nucleated Cells, Body Fluid 1960 /uL; RBC, Body Fluid 1640 /uL
[2017-11-22 16:42] LABS: Mononuclear WBC,Body Fluid 9 %; Polynuclear WBC,Body Fluid 91 %; Total Cells Counted,Body Fluid 100
[2017-11-22 16:53] LABS: Glucose,Whole Blood 153 mg/dL (75-99)
[2017-11-22] MEDS: CITALOPRAM HYDROBROMIDE 20 MG TAB PO SCH (17:26)
[2017-11-22] MEDS: METOPROLOL SUCCINATE (ER) 25 MG TAB.ER.24H PO SCH (17:26)
[2017-11-22 20:00] LABS: Glucose,Whole Blood 163 mg/dL (75-99)
[2017-11-22] MEDS: ATORVASTATIN 80 MG TAB PO SCH (20:53)
[2017-11-22] MEDS: PROMETHAZ-COD 6.25-10 MG/5 ML 5 ML CUP PO PRN (20:54)
[2017-11-22 21:13] VITALS: RESP 16
--- NOTE | 2017-11-23 05:05 | PN ---
PROGRESS NOTE DATE OF SERVICE: 11/22/2017 PRESENTING COMPLAINT: Tired. INTERVAL HISTORY: Patient presented with severe COPD exacerbation. Breathing is slightly improved. Patient does have limited respiratory tolerance. Did undergo bronchoscopy today. Spoke with Dr. Mello. Significant secretions were cleared out. Patient resting. is present. Patient did tolerate some diet. REVIEW OF SYSTEMS: Review of systems done for constitutional, cardiovascular, GI, pulmonary; relevant findings as above. CURRENT MEDICATIONS: Current medications are reviewed that include , Zithromax, Diflucan, oral prednisone. PHYSICAL EXAMINATION: On examination, temperature 98.5, pulse 83, respiratory 18, blood pressure 90/54, pulse ox 93% on 2 L. GENERAL APPEARANCE: Lying in bed, tired appearing, awake. EYES: Pupils equal. Conjunctivae normal. HENT: External appearance of nose and ears normal. Oral cavity normal. NECK: JVD not raised. Mass not palpable. RESPIRATORY: Effort increased. LUNGS: Decreased breath sounds. CARDIOVASCULAR: First and second sounds normal. No edema. ABDOMEN: Soft. Nontender. Liver and spleen not palpable. PSYCHIATRY: Alert and oriented x3. Mood and affect normal. INVESTIGATION: Bronchoscopy results were noted. Accu-Cheks are noted. Potassium 4.4. ASSESSMENT: 1. Acute severe chronic obstructive pulmonary disease exacerbation, having failed outpatient treatment. 2. Acute tracheobronchitis. 3. Status post bronchoscopy with significant secretions and mucous plugging removed, especially left lower lobe. 4. 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 5. Pharyngeal candidiasis, responding to Diflucan. 6. 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 7. Hyperlipidemia. 8. Essential hypertension. 9. Primary osteoarthritis. 10.Depression, not otherwise specified. 11.Gastroesophageal reflux disease. 12.Chronic urinary stress incontinence. PLAN: Care was discussed with Dr. Mello. Then discussed the care with the patient and the at the bedside. Did explain to him that the patient's COPD is rather advanced and did talk about basic pulmonary hygiene in detail. Looking at patient probably going home tomorrow. MMODL / IJN: [id number] /
[2017-11-23] MEDS ORDERED: LACTATED RINGERS 1,000 ML IV SCH (05:36)
[2017-11-23 07:04] LABS: Glucose,Whole Blood 92 mg/dL (75-99)
[2017-11-23] MEDS: IPRATROPIUM-ALBUTEROL 3 ML NEB INHALATION SCH ×2 (07:09→11:07)
[2017-11-23] MEDS: BUDESONIDE 1 MG/2 ML NEBU INHALATION SCH (07:09)
[2017-11-23] MEDS: FORMOTEROL FUMARATE 20 MCG/2 ML NEBU INHALATION SCH (07:09)
[2017-11-23] MEDS: INSULIN ASPART 100 UNIT/ML 1 ML 10 ML VIAL SQ SCH ×2 (08:00→12:24)
[2017-11-23] MEDS: predniSONE 20 MG TAB PO SCH (08:03)
[2017-11-23] MEDS: guaiFENesin 600 MG TABLET.ER PO SCH (08:03)
[2017-11-23] MEDS: PRIMIDONE 50 MG TAB PO SCH (08:03)
[2017-11-23] MEDS: ENOXAPARIN 40 MG/0.4 ML SYRINGE SQ SCH (08:03)
[2017-11-23] MEDS: LOSARTAN 25 MG TAB PO SCH (08:03)
[2017-11-23] MEDS: FLUCONAZOLE 100 MG TAB PO SCH (08:03)
[2017-11-23] MEDS: AZITHROMYCIN 500 MG TAB PO SCH (08:03)
[2017-11-23] MEDS: GABAPENTIN 100 MG CAP PO SCH (08:04)
[2017-11-23 08:15] LABS: Calcium 8.9 mg/dL (8.4-10.2); Potassium 4.3 mmol/L (3.5-5.1)
[2017-11-23 12:00] LABS: Glucose,Whole Blood 101 mg/dL (75-99)
[2017-11-23] MEDS: DULoxetine HCL 30 MG CAPSULE.DR PO SCH (12:42)
[2017-11-23] MEDS: CLOPIDOGREL 75 MG TAB PO SCH (12:42)
--- NOTE | 2017-11-23 15:37 | P.PN ---
Subjective Progress Note Date: 11/23/17 Principal diagnosis: acute exacerbation of chronic obstructive pulmonary disease Pulmonary consult dated 11/19/2017 77-year-old female with a history of COPD. She actually sees my partner Dr. Mello in the office. She states for last 3 or 4 days, she's had progressive and increasing shortness of breath. In addition, she's got cough. Not producing much or any phlegm. Lots of wheezing and tightness in her chest. She states her chest hurts when she coughs. No fever or chills. No chest pain or chest discomfort. No nausea vomiting or diarrhea. She apparently was transferred down from [facility] for her COPD exacerbation. She tells me that she takes a nebulizer machine 3-4 times a day and Symbicort for her COPD. In addition to COPD, she has a history of hypertension, CVA, dementia, fibromyalgia, hyperlipidemia, and rheumatoid arthritis. Surgical history includes among other things appendectomy bowel resection cholecystectomy hysterectomy. She did used to smoke cigarettes but she does not smoke currently. She feels about 40-50% better today than she did yesterday. on 11/20/2017 patient seen again in follow-up on medical surgical floor. she is improving, less bronchospastic, still has exertional shortness of breath. vital signs are stable, she is on 2 L per nasal cannula with O2 sat at 94%, no fever no chills,today's labs were noted, WBCs 11.2, hemoglobin is 12.6, sodium is 135 , chloride is 96, B1 is 20, creatinine 0.74.history chest x-ray has been reviewed by Dr. Mello, showed mild diffuse interstitial prominence and mild hyperinflation, no consolidation or pleural effusions, no acute cardiopulmonary process.patient is being treated with IV steroids, Perforomist, Pulmicort, DuoNeb. We'll continue with current plan of treatment. patient's FEV1 is in order of 48%, measured in 2016, and this is consistent with moderately severe COPD, Gold stage III. On 11/21/2017 patient seen again on medical surgical floor. Resting in bed, she states she could not sleep last night related to persistent coughing, and the patient is unable to bring up any phlegm. Denies any chest pain, she is very fatigued, and becomes dyspneic with any exertion. Pulse ox on 2 L per nasal cannula is 95%, patient is afebrile, dynamically stable. CT chest results from June 2017 were obtained from [facility] in at that time showed some ill-defined infiltrates or atelectasis predominantly affecting the upper and middle lobes, questionable viral or mycoplasma infection. Was nonspecific scattered mediastinal lymph nodes largest one in the retro-subcarinal area measuring up to 15 mm. She remains on empiric antibiotics in the form of Zithromax, add Mucinex, and cough syrup, in addition to Pulmicort, Perforomist, DuoNeb nebulized treatments, and steroids. On today's evaluation of 11/22/2017, the patient is being admitted to undergo a flexible bronchoscopy, bronchial lavage and a sample was sent for culture suspecting an underlying infection. Note that after some initial recovery the patient continued to have vigorous cough and a congested cough that she was unable to bring up much of sputum. This been going on for quite some time and I think it's worthwhile to undergo a bronchoscopy for therapeutic airway suctioning and St. of establishing microbial diagnoses of there is any ongoing infection. The patient is currently on Zithromax orally 500 mg by mouth daily. The patient is also on Diflucan 100 mg by mouth daily. The patient on a prednisone burst taper. The patient continues to be on DuoNeb nebulized treatments around the clock, Pulmicort Respules and perform it the last 2 minutes twice a day. She is agreeable to the procedure. A timeout was obtained. Consent was obtained. is also aware. She is on Phenergan with codeine to suppress her cough. On 11/23/2017 patient seen again in follow-up. She is status post bronchoscopy with BAL on 11/22/2017, patient reports significant improvement in her level of dyspnea, and chest congestion. stable vitals, patient is afebrile, bronchial wash cultures are pending. Patient has been treated with empiric antibiotics in the form of Zithromax, IV steroids, nebulized bronchodilators, and is improving. Has been ambulating, tolerating it well, requesting to go home today. Objective - Vital Signs Vital signs: Vital Signs Temp 97.6 F 11/23/17 05:17 Pulse 85 11/23/17 11:21 Resp 16 11/23/17 08:00 BP 126/60 11/23/17 05:17 Pulse Ox 94 L 11/23/17 05:17 Intake & Output 11/22/17 11/23/17 11/23/17 18:59 06:59 18:59 Intake Total 150 Balance 150 Intake: IV 150 Other: Voiding Method Toilet Toilet Toilet # Voids 2 2 2 - Exam No acute distress, oriented 3. Nasal O2 in place. HEENT examination is grossly unremarkable. Mucous membranes are moist. No oral lesions. Neck supple. Full range of motion. No adenopathy thyromegaly or neck vein distention. Cardiovascular examination reveals regular rhythm rate. S1-S2 normal. No S3 or S4. No discernible murmur noted. Lungs reveal minimal wheezing, and scattered rhonchi, overall improved aeration bilaterally Abdomen soft bowel sounds are heard. No masses or tenderness. Extremities are intact. No cyanosis clubbing or edema. Skin has multiple areas of ecchymoses and bruising. Neurologic examination is brief but nonfocal. - Labs CBC & Chem 7: 11/20/17 07:27 11/23/17 07:18 Labs: Abnormal Lab Results - Last 24 Hours (Table) 11/22/17 11/22/17 11/23/17 Range/Units 16:52 19:59 07:18 Sodium 135 L (137-145) mmol/L BUN 19 H (7-17) mg/dL POC Glucose (mg/dL) 153 H 163 H (75-99) mg/dL 11/23/17 Range/Units 11:37 Sodium (137-145) mmol/L BUN (7-17) mg/dL POC Glucose (mg/dL) 101 H (75-99) mg/dL Microbiology - Last 24 Hours (Table) 11/22/17 13:00 Gram Stain - Preliminary Bronchial Washings - Random Bronchial Washings Culture - Preliminary Assessment and Plan Plan: Assessment: COPD exacerbation Moderately severe COPD, GOLD stage III, with a baseline FEV1 of 48% of predicted History of CVA/TIA History of dementia Fibromyalgia History of hyperlipidemia History of hypertension History of rheumatoid arthritis Plan: Cultures remain negative, vital signs are stable, no acute events overnight, patient is tolerating ambulation, breathing better, less congested, less bronchospastic. Bronchial wash cultures are pending, patient has been treated with Zithromax, has improved, patient can finish outpatient course of Zithromax , prednisone taper in the maintenance nebulized treatments and inhalers, a prescription was given to her for a Spiriva HandiHaler, 1 puff daily. Patient is to discharge home today, patient will follow-up with Dr. Brizuela in the office in one week. I performed a history & physical examination of the patient and discussed their management with my nurse practitioner, Sonia Rocha. I reviewed the nurse practitioner's note and agree with the documented findings and plan of care. Lung sounds are few end expiratory wheezes, and a few rhonchi. The findings and the impression was discussed with the patient. I attest to the documentation by the nurse practitioner. Time with Patient: Less than 30
[2017-11-23 15:51] VITALS: BP 130/60; PULSE 105; TEMP 98.5
--- NOTE | 2017-11-24 06:16 | DS ---
DISCHARGE SUMMARY DATE OF ADMISSION: 11/18/2017 DATE OF DISCHARGE: 11/23/2017 FINAL DIAGNOSES: 1. Acute severe chronic obstructive pulmonary disease exacerbation, having failed outpatient treatment secondary to acute tracheobronchitis. 2. Procedure bronchoscopy with significant secretions and mucous plugging was removed. 3. 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 4. Pharyngeal candidiasis, responded to Diflucan. 5. 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 6. Hyperlipidemia. 7. Essential hypertension. 8. Primary osteoarthritis. 9. Depression, not otherwise specified. 10.Gastroesophageal reflux disease. 11.Chronic urinary stress incontinence. HOSPITAL COURSE: This patient admitted from [facility] when she was not responding and was quite a bit short of breath, wheezing, tired, run down. Responded well to bronchodilators, steroids. Did also undergo bronchoscopy by Dr. Mello and secretions were cleared out. Doing better at the time of discharge today. Today I did discuss at length with the patient and the that patient's lung functions are rather advanced and she is definitely getting high risk of infections any time again. Dr. Mello okayed the patient to be discharged. ON EXAMINATION: LUNGS: Improved air entry. CARDIOVASCULAR: First and second sounds normal. No malignant cells were identified. CONSULTATIONS: Dr. Mello from Pulmonary. DISCHARGE MEDICATIONS: 1. Symbicort 160/4.5 two puffs b.i.d. 2. Celexa 20 mg p.o. daily. 3. Neurontin 100 mg p.o. t.i.d. 4. Lipitor 80 mg at bedtime. 5. Plavix 75 mg p.o. daily. 6. Mysoline 50 mg t.i.d. 7. ProAir 2 puffs q.4 p.r.n. 8. Zofran 4 mg q.8 p.r.n. 9. Ventolin 2.5 q.4 p.r.n. 10.Cymbalta mg p.o. daily. 11.Lomotil 2.5 one tablet q.12 p.r.n. 12.Cozaar 25 mg p.o. daily. 13.Magnesium oxide 800 mg at bedtime p.r.n. 14.Toprol XL 25 mg p.o. daily. 15.Omeprazole 40 mg p.o. daily. 16.Requip 0.5 p.o. at bedtime. 17.Ceftin 500 mg p.o. b.i.d., 10 tablets. 18.Diflucan 100 mg p.o. daily, 5 tablets. 19.DuoNeb q.i.d. 20.Mucinex 1200 mg q.12. 21.Prednisone taper. The patient does not really require oxygen. Follow up with Dr. Willard on 12/01/2017; Dr. Bermudez on 11/30/2017. Discussion and discharge planning more than 35 minutes. MMODL / IJN: [id number] /
== END 2017-11-23 16:10 | disposition home or self-care (01) | DRG 167 ==
LOC: EC 13:43 → 5MS5E 13:56
PROVIDERS: ADMIT Hospitalist; ATTEND Hospitalist
PROC: 0B9J8ZX Drainage of Left Lower Lung Lobe, Via Natural or Artificial Opening Endoscopic, Diagnostic (ICD-10-PCS; principal; 2017-11-22 12:25)
DX: J44.0 Chronic obstructive pulmonary disease with (acute) lower respiratory infection (principal); B37.89 Other sites of candidiasis; J44.1 Chronic obstructive pulmonary disease with (acute) exacerbation; K21.9 Gastro-esophageal reflux disease without esophagitis; G25.3 Myoclonus; E78.5 Hyperlipidemia, unspecified; F02.80 Dementia in other diseases classified elsewhere, unspecified severity, without behavioral disturbance, psychotic disturbance, mood disturbance, and anxiety; F17.200 Nicotine dependence, unspecified, uncomplicated; F32.9 Major depressive disorder, single episode, unspecified; G25.81 Restless legs syndrome; G30.1 Alzheimer's disease with late onset; I10 Essential (primary) hypertension; I25.2 Old myocardial infarction; I49.3 Ventricular premature depolarization; J20.9 Acute bronchitis, unspecified; M06.9 Rheumatoid arthritis, unspecified; M19.91 Primary osteoarthritis, unspecified site; M79.7 Fibromyalgia; N39.3 Stress incontinence (female) (male); R09.02 Hypoxemia; T17.990A Other foreign object in respiratory tract, part unspecified in causing asphyxiation, initial encounter; Z79.51 Long term (current) use of inhaled steroids; Z79.02 Long term (current) use of antithrombotics/antiplatelets; Z79.899 Other long term (current) drug therapy; Z82.49 Family history of ischemic heart disease and other diseases of the circulatory system; Z86.73 Personal history of transient ischemic attack (TIA), and cerebral infarction without residual deficits; Z90.710 Acquired absence of both cervix and uterus; Z88.6 Allergy status to analgesic agent; Z88.5 Allergy status to narcotic agent; Z90.49 Acquired absence of other specified parts of digestive tract
CPT/HCPCS: 31624; 71046; 80048; 83036; 85025; 87070; 87205; 88108; 88305; 89050; 93005; 94640; 94760; 99285

== ENCOUNTER → 2018-10-12 | Outpatient (CLI) | payer MEDICARE, OTHER | LOC: LABWHC1 17:13 | PROVIDERS: ATTEND Internal Medicine Critical Care Medicine | DX: J44.9 Chronic obstructive pulmonary disease, unspecified (principal); J45.909 Unspecified asthma, uncomplicated | CPT/HCPCS: 36415; 82785; 85008; 86003 ==

== ENCOUNTER → 2019-06-14 | Outpatient (CLI) | payer MEDICARE, OTHER ==
--- NOTE | 2019-06-14 14:29 | MR ---
EXAMINATION TYPE: MR lumbar spine wo con DATE OF EXAM: 06/14/2019 1:20 PM COMPARISON: NONE HISTORY: Lumbar pain Multiplanar, MultiSpin echo imaging of the lumbar spine was performed. L1-L2: Mild disc desiccation noted. No herniation, protrusion or disc bulging. No canal stenosis is present. Foramina are patent bilaterally. L2-L3: Mild disc desiccation noted. No herniation, protrusion or disc bulging. No canal stenosis is present. Foramina are patent bilaterally. L3-L4: Mild disc desiccation noted. No herniation, protrusion or disc bulging. No canal stenosis is present. Foramina are patent bilaterally. L4-L5: Mild disc desiccation with posterior disc bulge. No evidence for central stenosis or lateral r ecess stenosis. Facet joint arthropathy with mild bilateral foraminal encroachment. L5-S1: Mild disc desiccation with posterior disc bulge. No evidence for central stenosis or lateral r ecess stenosis. Facet joint arthropathy with mild bilateral foraminal encroachment. Lumbar segments are intact. No paraspinal masses are identified. Conus medullaris has a normal appe arance. IMPRESSION: 1. Mild multilevel degenerative disc disease and mild disc bulging as noted.
== END | disposition home or self-care (01) ==
LOC: RADMRIMAIN 11:39
PROVIDERS: ATTEND Psychiatry & Neurology Neurology
DX: M51.86 Other intervertebral disc disorders, lumbar region (principal); M51.36 Other intervertebral disc degeneration, lumbar region
CPT/HCPCS: 72148

== ENCOUNTER → 2019-07-25 | Outpatient (CLI) | payer MEDICARE, OTHER ==
--- NOTE | 2019-07-25 16:47 | MR ---
MRI CERVICAL SPINE: CLINICAL HISTORY: Cervical pain and arm weakness per order. Headaches and neck pain causing bilateral upper extremity weakness per patient. TECHNIQUE: Multiplanar, multisequence imaging of the cervical spine is performed without IV contrast. COMPARISON: None. FINDINGS: Coronal images show slight scoliotic curvature. Sagittal images show exaggerated lumbar yonatan dosis with grade 1 anterolisthesis of C4 on C5 and C5 on C6 along with most prominent level C6 on C7. Sagittal images of the cervical spine show the craniocervical junction to appear within normal limit s. The cervical and upper thoracic spinal cord is normal in caliber and signal. The vertebral body h eights are normal. [id number] multilevel disc space narrowing with moderate multilevel anterio r spurring. Heterogeneity of bone marrow signal intensity. Axial images show the C2-C3 level to appear within normal limits. Axial images at C3-C4 level shows broad-based posterior disc protrusion effacing the anterior thecal sac with uncovertebral facet degenerative changes causing moderate left-sided neural foraminal narrow ing. Axial images at C4-C5 level show spondylolisthesis with broad-based posterior disc protrusion effacin g the anterior thecal sac and causing moderate to advanced bilateral neural foraminal narrowing. Axial images at C5-C6 levels are broad-based posterior disc protrusion effacing the anterior thecal s ac with uncovertebral facet degenerative changes causing moderate to advanced right and moderate left -sided neural foraminal narrowing. Axial images at C6-C7 level show spondylolisthesis with broad based left paracentral disc protrusion effacing anterior thecal sac and causing mild bilateral neural foraminal narrowing. Axial images at C7-T1 level are felt within normal limits. IMPRESSION: Exaggerated cervical curvature with multilevel spondylolisthesis greatest C6-C7 level. Mu ltilevel degenerative changes are seen as detailed above greatest C3-C4 through the C6-C7 levels.
== END | disposition home or self-care (01) ==
LOC: RADMRIMAIN 15:34
PROVIDERS: ATTEND Psychiatry & Neurology Neurology
DX: M43.12 Spondylolisthesis, cervical region (principal); M47.812 Spondylosis without myelopathy or radiculopathy, cervical region
CPT/HCPCS: 72141

== ENCOUNTER 2020-01-08 11:18 | Day surgery (SDC) | payer MEDICARE, OTHER ==
[2020-01-06 09:59] VITALS: BMI 25.6
[~2020-01-08 11:18] MED LIST: ALBUTEROL NEB (CONC) 2.5 MG/0.5 ML INHALATION ONE; LIDOCAINE 2% (PF) 20 MG/ML 5 ML VIAL INHALATION ONE; LIDOCAINE VISCOUS 300 MG/15 ML CUP MUCOUS MEM ONE; SODIUM CHLORIDE 0.9% 1,000 ML IV SCH
[2020-01-08 11:40] VITALS: TEMP 97.3
[2020-01-08] MEDS ORDERED: LIDOCAINE 1% (10MG/ML) FOR IV START INTRADERMA ONE (11:50)
[2020-01-08] MEDS ORDERED: KETAMINE 10 MG/ML 20 ML VIAL ONE (12:37)
[2020-01-08] MEDS ORDERED: MIDAZOLAM 2 MG/2 ML VIAL ONE (12:37)
[2020-01-08] MEDS ORDERED: PROPOFOL 10 MG/ML 20 ML VIAL IV ONE (12:37)
[2020-01-08] MEDS ORDERED: LIDOCAINE 1% INJ 10MG/ML (20 ML MDV) ONE (12:37)
[2020-01-08] MEDS ORDERED: fentaNYL (PF) 50 MCG/ML 2 ML AMP ONE (12:37)
--- NOTE | 2020-01-08 13:09 | P.PCN ---
Date of Procedure: 01/08/20 Preoperative Diagnosis: Dyspnea, chronic Obstructive lung disease, COPD Postoperative Diagnosis: same Procedure(s) Performed: flexible bronchoscopy, BAL of the Lingula (superior segment) Anesthesia: MAC Surgeon: Willie Mello Estimated Blood Loss (ml): 0 Pathology: other Condition: stable Disposition: same day Operative Findings: This procedure was done in the endoscopy suite. The procedure including the bronchoscopy, airway inspection and bronchial alveolar lavage. 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 The patient was noted to have an elevated IgE level and her serum Aspergillus antibodies came back also positive and there is also a vague history of Aspergillus cultured in her lungs based on the penis bronchoscopy that was done in [place]. For that reason a repeat bronchoscopy was done This procedure was done under conscious sedation. Anesthetic was administered by anesthesia the bedside. After achieving adequate sedation flexible bronchoscope was introduced through the left nostril was advanced upper airway. Examination of the posterior oropharynx, larynx, epiglottis and arytenoids and the vocal cords was all within normal limits. Vocal cords were functional and within normal limits. No polypoid lesions or tumors or abnormalities identified. A total of 2 mL of 1% lidocaine was applied to the vocal cords and following that the bronchoscope was advanced to the upper trachea. Exertional tachycardia bronchial tree was done. The visualized airways including the trachea, upper and lower, bilateral mainstem bronchi, right upper lobe bronchus, bronchus intermedius, right middle lobe bronchus, right lower lobe bronchus, left upper lobe bronchus, left lower lobe bronchus. There various airways were patent and there was mild to moderate component of tracheal bronchomalacia noted throughout the patient's airway. No endobronchial tumors or lesions identified. No significant secretions identified. There was some mild mucosal erythema throughout the airways. The bronchoscope was wedged into the severe segment of the lingula and the bronchioloalveolar lavage was done. A total of 100 mL of fluid was infused and around 15-20 mL of aspirate was obtained from the superior segment of the lingula. Therapeutic it was suctioning was done. The procedure was completed and the procedure was terminated and bronchoscope was removed and the patient was changed to recovery in stable condition. The bronchioloalveolar lavage of the lingula will be sent for microbial cultures and analysis. We will also obtain a cell count and differential. Further recommendations are to follow based on the findings. No complications and the patient can be discharged home following the procedure.
[2020-01-08 13:34] VITALS: BP 125/76; PULSE 98; RESP 18
[2020-01-08 14:20] LABS: Cholesterol 166 mg/dL (<200); HDL Cholesterol 59 mg/dL (40-60); LDL Cholesterol,Calculated 80 mg/dL (0-99); Triglycerides 137 mg/dL (<150)
[2020-01-08 21:56] LABS: Appearance,BF Bloody; Color,BF Red; Nucleated Cells, Body Fluid 1750 /uL; RBC, Body Fluid 43750 /uL
[2020-01-08 22:01] LABS: Mononuclear WBC,Body Fluid 7 %; Polynuclear WBC,Body Fluid 91 %
== END 2020-01-08 14:10 | disposition home or self-care (01) ==
LOC: ORWHC2ENDO 11:18
PROVIDERS: ATTEND Internal Medicine Critical Care Medicine
DX: J98.4 Other disorders of lung (principal); J47.9 Bronchiectasis, uncomplicated; R76.8 Other specified abnormal immunological findings in serum; R68.89 Other general symptoms and signs; G89.29 Other chronic pain; M54.9 Dorsalgia, unspecified; I10 Essential (primary) hypertension; R61 Generalized hyperhidrosis; I69.328 Other speech and language deficits following cerebral infarction; B37.2 Candidiasis of skin and nail; I25.2 Old myocardial infarction; F03.90 Unspecified dementia, unspecified severity, without behavioral disturbance, psychotic disturbance, mood disturbance, and anxiety; E78.5 Hyperlipidemia, unspecified; Z88.6 Allergy status to analgesic agent; Z88.5 Allergy status to narcotic agent; Z79.899 Other long term (current) drug therapy; Z79.51 Long term (current) use of inhaled steroids; Z87.891 Personal history of nicotine dependence; Z98.890 Other specified postprocedural states; Z90.49 Acquired absence of other specified parts of digestive tract; Z90.710 Acquired absence of both cervix and uterus; Z86.19 Personal history of other infectious and parasitic diseases; Z79.1 Long term (current) use of non-steroidal anti-inflammatories (NSAID); Z79.82 Long term (current) use of aspirin; Z97.2 Presence of dental prosthetic device (complete) (partial); Z82.49 Family history of ischemic heart disease and other diseases of the circulatory system; Z80.9 Family history of malignant neoplasm, unspecified
CPT/HCPCS: 88108; 88305; 80061; 89050; 87252; 87070; 87205; 87116; 87102; 87206; 31624; J2250; J2001; J3010; J2704